=== PATIENT | female | born 1950 | race Caucasian/White ===

== ENCOUNTER 2017-05-23 16:01 | Observation (INO) | payer MEDICARE, BC ==
[~2017-05-23] VITALS: Ht 157.5 cm; Wt 60.1 kg
[~2017-05-23 16:01] MED LIST: ALBU8I INH; AMLO5 PO; ATOR10 PO; BECL80AE3 INH; CIPR500T4 PO; CLAR10TA7 PO; FLAG500T PO; FLON0.053; IBUP-232 PO; LEXA5TAB PO; MONT10TA2 PO; POTA-243 PO; PROM6.257 PO; PROT40TA PO; ZITH250T PO
[2017-05-23 16:13] VITALS: BP 155/84; PULSE 106; RESP 16; TEMP 98.4; O2SAT 95
[2017-05-23] MEDS ORDERED: OMEP40CA2 PO (17:53)
[2017-05-23] MEDS ORDERED: AMLO5TAB2 PO (17:53)
[2017-05-23] MEDS ORDERED: LEVO75TA3 PO (17:53)
[2017-05-23] MEDS ORDERED: LEXA10TA PO (17:53)
[2017-05-23] MEDS ORDERED: BECL0.07 INH (17:53)
[2017-05-23] MEDS ORDERED: FLUT50SP EACH NARE (17:53)
[2017-05-23] MEDS ORDERED: MONT10TA4 PO (17:53)
[2017-05-23] MEDS ORDERED: ALEN1TAB48 PO (17:53)
[2017-05-23] MEDS ORDERED: ATOR20TA15 PO (17:53)
[2017-05-23] MEDS ORDERED: K-TA10TA PO (17:53)
[2017-05-23] MEDS ORDERED: SODIUM CHLOR 0.9% 1000 ML INJ 1,000 ML IV SCH (18:03)
[2017-05-23 18:15] VITALS: BP 164/89; PULSE 105; PULSE 88; RESP 18; O2SAT 97
[2017-05-23] MEDS ORDERED: ONDANSETRON HCL 4 MG/2 ML VIAL IVP ONE (18:15)
[2017-05-23] MEDS ORDERED: SODIUM CHLORIDE 0.9% FLUSH 10 ML FLUSH IV FLUSH PRN ×2 (18:15→20:45)
[2017-05-23] MEDS ORDERED: MORPHINE SULFATE 4 MG/ML INJ IV PUSH ONE (18:15)
[2017-05-23 18:18] LABS: AUTOMATED NEUTROPHIL # 11.4 TH/MM3 (1.8-7.7); BASOPHIL # 0.4 TH/MM3 (0-0.2); BASOPHIL % 2.8 % (0.0-2.0); EOSINOPHIL % 0.2 % (0.0-4.0); HEMATOCRIT 42.9 % (35.0-46.0); HEMOGLOBIN 14.2 GM/DL (11.6-15.3); LYMPH % 11.1 % (9.0-44.0); LYMPHOCYTE # 1.6 TH/MM3 (1.0-4.8); MEAN CELL VOLUME 87.9 FL (80.0-100.0); MEAN CORPUSCULAR HEMOGLOBIN 29.1 PG (27.0-34.0); MEAN CORPUSCULAR HGB CONC 33.1 % (32.0-36.0); MEAN PLATELET VOLUME 7.2 FL (7.0-11.0); MONOCYTE # 0.7 TH/MM3 (0-0.9); NEUT % 80.9 % (16.0-70.0); PLATELET COUNT 281 TH/MM3 (150-450); RED BLOOD COUNT 4.88 MIL/MM3 (4.00-5.30); RED CELL DISTRIBUTION WIDTH 12.9 % (11.6-17.2); WHITE BLOOD COUNT 14.1 TH/MM3 (4.0-11.0)
[2017-05-23 18:28] LABS: CHLORIDE 102 MEQ/L (98-107); SODIUM (NA) 138 MEQ/L (136-145)
[2017-05-23 18:32] LABS: CALCIUM 8.6 MG/DL (8.5-10.1)
[2017-05-23 18:33] LABS: ALBUMIN 3.3 GM/DL (3.4-5.0); BICARBONATE 27.6 MEQ/L (21.0-32.0); BLOOD UREA NITROGEN 12 MG/DL (7-18); GLUCOSE,RANDOM 125 MG/DL (74-106)
[2017-05-23 18:36] LABS: ALT (GPT) 27 U/L (10-53); AST (GOT) 20 U/L (15-37); CREATININE 0.82 MG/DL (0.50-1.00); GLOMERULAR FILTRATION RATE 70 ML/MIN (>89)
[2017-05-23 18:37] LABS: PROTHROMBIN TIME - PATIENT 10.2 SEC (9.8-11.6); TOTAL BILIRUBIN ADULT 0.6 MG/DL (0.2-1.0); TOTAL PROTEIN 7.8 GM/DL (6.4-8.2)
[2017-05-23 18:38] LABS: ALKALINE PHOSPHATASE 94 U/L (45-117)
[2017-05-23] MEDS ORDERED: IOHEXOL 350 MG/ML 10 ML VIAL (for RAD DIAG) IVCONTRAST ONE (19:07)
--- NOTE | 2017-05-23 19:21 | RADRPT ---
EXAM DATE/TIME: 05/23/2017 18:49 [place] COMPARISON: Report only CT ABDOMEN & PELVIS W CONTRAST, November 05, 2013, 17:53. INDICATIONS : Right abdominal pain. IV CONTRAST: 85 cc Omnipaque 350 (iohexol) IV ORAL CONTRAST: No oral contrast ingested. RADIATION DOSE: 6.24 CTDIvol (mGy) MEDICAL HISTORY : Hernia, hiatal. Hypertension. Asthma. SURGICAL HISTORY : Tubal ligation. ENCOUNTER: Initial ACUITY: 1 day PAIN SCALE: 5/10 LOCATION: Right abdomen. TECHNIQUE: Volumetric scanning of the abdomen and pelvis was performed. Using automated exposure control and ad justment of the mA and/or kV according to patient size, radiation dose was kept as low as reasonably achievable to obtain optimal diagnostic quality images. DICOM format image data is available electro nically for review and comparison. FINDINGS: LOWER LUNGS: Mild patchy atelectasis of both bases. LIVER: 23 mm left lobe and 19 mm right lobe cysts are present, described previously. Liver is fatty. SPLEEN: Normal size without lesion. PANCREAS: Within normal limits. KIDNEYS: Normal in size and shape. There is no mass, stone or hydronephrosis. ADRENAL GLANDS: Within normal limits. VASCULAR: Atherosclerotic plaque of the abdominal aorta and iliac arteries. No aneurysm. BOWEL/MESENTERY: Distended and fluid-filled appendix with periappendiceal stranding and some thickening of the adjacen t base of the cecum. No abscess, perforation or obstruction. ABDOMINAL WALL: Within normal limits. RETROPERITONEUM: There is no lymphadenopathy. BLADDER: No wall thickening or mass. REPRODUCTIVE: Within normal limits. INGUINAL: There is no lymphadenopathy or hernia. MUSCULOSKELETAL: No acute bony abnormality. CONCLUSION: 1. Uncomplicated acute appendicitis. 2. Mild bibasilar atelectasis. 3. Benign cysts of the liver. Fatty infiltration noted. Mario Perry MD on May 23, 2017 at 19:15 Board Certified Radiologist. This report was verified electronically.
[2017-05-23 19:39] LABS: BILIRUBIN, URINE NEG (NEG); BLOOD, URINE NEG (NEG); GLUCOSE,URINE NEG (NEG); KETONE, URINE TRACE mg/dL (NEG); NITRITE,URINE NEG (NEG); PH, URINE 6.5 (5.0-8.5); URINE COLOR YELLOW (YELLW/STRAW); URINE LEUKOCYTE ESTERASE NEG (NEG)
[2017-05-23 19:58] LABS: SQUAMOUS EPITHELIAL CELL URINE 0-5 /hpf (0-5)
[2017-05-23 19:59] LABS: MUCUS URINE RARE /lpf (OCC); WHITE BLOOD CELL CLUMPS RARE
[2017-05-23] MEDS ORDERED: cefTRIAXone INJ 1,000 MG in SODIUM CHLORIDE 0.9% INJ 100 ML IV ONE (20:00)
[2017-05-23] MEDS ORDERED: metroNIDAZOLE 500 MG INJ 100 ML IV ONE (20:00)
[2017-05-23] MEDS ORDERED: SENNOSIDES 8.6 MG TAB PO PRN (20:45)
[2017-05-23] MEDS ORDERED: LACTULOSE SYRUP 20 GM/30 ML CUP PO PRN (20:45)
[2017-05-23] MEDS ORDERED: NALOXONE HCL 0.4 MG/ML AMP IV PUSH PRN (20:45)
[2017-05-23] MEDS ORDERED: BISACODYL 10 MG SUPP RECTAL PRN (20:45)
[2017-05-23] MEDS ORDERED: ONDANSETRON HCL 4 MG/2 ML VIAL IVP PRN (20:45)
[2017-05-23] MEDS ORDERED: MAGNESIUM HYDROXIDE SUSP 30 ML CUP PO PRN (20:45)
[2017-05-23] MEDS ORDERED: MORPHINE SULFATE 2 MG/ML INJ IV PUSH PRN (20:45)
[2017-05-23 20:49] VITALS: BP 119/99; PULSE 102; RESP 18; O2SAT 97
--- NOTE | 2017-05-23 20:49 | PD ---
HPI Chief Complaint: Abdominal Pain Time Seen by Provider: 17:57 Travel History International Travel<30 days: No Contact w/Intl Traveler<30days: No Traveled to known affect area: No History of Present Illness HPI Patient is a 66-year-old female who comes in complaining of right-sided abdominal pain. She says the pain started on Saturday and has been getting worse. She says she had occasional nausea vomiting, but today has vomited several times. She denies fever or chills. She says she is moving her bowels regularly. She denies any dysuria. She has not taken anything for the pain. Severity is mild to moderate. PFSH Past Medical History Arthritis: Yes Asthma: Yes (WITH CHRONIC BRONCHITIS) Cardiovascular Problems: Yes (htn on meds) High Cholesterol: Yes Diminished Hearing: No GERD: Yes Hiatal Hernia: Yes Hypertension: Yes Inguinal Hernia: Yes Respiratory: Yes (asthma) Immunizations Current: Yes (shingles vac 2012) Thyroid Disease: Yes Influenza Vaccination: Yes ?: Not Menopausal: Yes Tubal Ligation: Yes Past Surgical History Other Surgery: Yes (r bunionectomy) Social History Alcohol Use: No Tobacco Use: No Substance Use: No Allergies-Medications (Allergen,Severity, Reaction): Coded Allergies: penicillin G (Unverified Adverse Reaction, Intermediate, RASH, 05/23/17) Reported Meds & Prescriptions Reported Meds & Active Scripts Active Reported Fluticasone Nasal [place] 50 Mcg/Act Naspr 50 Mcg EACH NARE BID 50 mcg/spray Qvar Inh (Beclomethasone Dipropionate) 40 Mcg/Act Aero 1 Puff INH BID Amlodipine (Amlodipine Besylate) 5 Mg Tab 5 Mg PO DAILY Atorvastatin (Atorvastatin Calcium) 20 Mg Tab 20 Mg PO HS Montelukast (Montelukast Sodium) 10 Mg Tab 10 Mg PO HS Lexapro (Escitalopram Oxalate) 10 Mg Tab 10 Mg PO DAILY K-Tab (Potassium Chloride) 10 Meq Tab 10 Meq PO DAILY Omeprazole 40 Mg Cap 40 Mg PO DAILY Levothyroxine (Levothyroxine Sodium) 75 Mcg Tab 75 Mcg PO DAILY Alendronate (Alendronate Sodium) 70 Mg Tab 70 Mg PO Q7D Review of Systems Except as stated in HPI: all other systems reviewed are Neg General / Constitutional: No: Fever, Chills HENT: No: Headaches, Lightheadedness Cardiovascular: No: Chest Pain or Discomfort Respiratory: No: Shortness of Breath Gastrointestinal: Positive: Nausea, Vomiting, Abdominal Pain Genitourinary: No: Dysuria Musculoskeletal: No: Myalgias Skin: No Rash, No Change in Pigmentation Neurologic: No: Weakness Physical Exam Narrative GENERAL: Awake and alert, in no acute distress. SKIN: Focused skin assessment warm/dry. HEAD: Atraumatic. Normocephalic. EYES: Pupils equal and round. No scleral icterus. ENT: Mucous membranes pink and moist. NECK: Trachea midline. No JVD. CARDIOVASCULAR: Regular rate and rhythm. No murmur appreciated. RESPIRATORY: No accessory muscle use. Clear to auscultation. Breath sounds equal bilaterally. GASTROINTESTINAL: Abdomen soft, nondistended. Tenderness to palpation of the right side of the abdomen. No rebound or guarding. MUSCULOSKELETAL: No obvious deformities. No clubbing. No cyanosis. No edema. NEUROLOGICAL: Awake and alert. No obvious cranial nerve deficits. Motor grossly within normal limits. Normal speech. PSYCHIATRIC: Appropriate mood and affect; insight and judgment normal. Data Data Last Documented VS Vital Signs Date Time Temp Pulse Resp B/P (MAP) Pulse Ox O2 Delivery O2 Flow Rate FiO2 05/23/17 18:31 18 05/23/17 18:15 88 164/89 (114) 97 Room Air 05/23/17 16:13 98.4 Orders Orders Complete Blood Count With Diff (05/23/17 18:03) Comprehensive Metabolic Panel (05/23/17 18:03) Lipase (05/23/17 18:03) Prothrombin Time / Inr (Pt) (05/23/17 18:) Act Partial Throm Time (Ptt) (05/23/17 18:03) Urinalysis - C+S If Indicated (05/23/17 18:03) Ct Abd/Pel W Iv Contrast(Rout) (05/23/17 18:03) Iv Access Insert/Monitor (05/23/17 18:) Ecg Monitoring (05/23/17 18:) Oximetry (05/23/17 18:03) Morphine Inj (Morphine Inj) (05/23/17 18:15) Ondansetron Inj (Zofran Inj) (05/23/17 18:15) Sodium Chlor 0.9% 1000 Ml Inj (Ns 1000 M (05/23/17 18:03) Sodium Chloride 0.9% Flush (Ns Flush) (05/23/17 18:15) Iohexol 350 Inj (Omnipaque 350 Inj) (05/23/17 19:07) Ceftriaxone Inj (Rocephin Inj) (05/23/17 20:00) Metronidazole 500 Mg Inj (Flagyl 500 Mg (05/23/17 20:00) Urine Culture (05/23/17 19:26) Consent (05/23/17 20:23) Place In Observation (05/23/17 ) Vital Signs (Adult) Q4H (05/23/17 20:40) Diet Npo (05/24/17 Breakfast) Sodium Chlor 0.9% 1000 Ml Inj (Ns 1000 M (05/23/17 20:40) Sodium Chloride 0.9% Flush (Ns Flush) (05/23/17 20:45) Sodium Chloride 0.9% Flush (Ns Flush) (05/23/17 21:00) Ondansetron Inj (Zofran Inj) (05/23/17 20:45) Comprehensive Metabolic Panel (05/24/17 06:00) Complete Blood Count With Diff (05/24/17 06:00) Naloxone Inj (Narcan Inj) (05/23/17 20:45) Docusate Sodium-Senna (Sakina-Colace) (05/23/17 21:00) Magnesium Hydroxide Liq (Milk Of Magnesi (05/23/17 20:45) Sennosides (Senokot) (05/23/17 20:45) Bisacodyl Supp (Dulcolax Supp) (05/23/17 20:45) Lactulose Liq (Lactulose Liq) (05/23/17 20:45) Morphine Inj (Morphine Inj) (05/23/17 20:45) Ceftriaxone Inj (Rocephin Inj) (05/24/17 20:00) Admit Order (Ed Use Only) (05/23/17 ) Labs Laboratory Tests Test 05/23/17 18:00 05/23/17 19:26 White Blood Count 14.1 TH/MM3 Red Blood Count 4.88 MIL/MM3 Hemoglobin 14.2 GM/DL Hematocrit 42.9 % Mean Corpuscular Volume 87.9 FL Mean Corpuscular Hemoglobin 29.1 PG Mean Corpuscular Hemoglobin Concent 33.1 % Red Cell Distribution Width 12.9 % Platelet Count 281 TH/MM3 Mean Platelet Volume 7.2 FL Neutrophils (%) (Auto) 80.9 % Lymphocytes (%) (Auto) 11.1 % Monocytes (%) (Auto) 5.0 % Eosinophils (%) (Auto) 0.2 % Basophils (%) (Auto) 2.8 % Neutrophils # (Auto) 11.4 TH/MM3 Lymphocytes # (Auto) 1.6 TH/MM3 Monocytes # (Auto) 0.7 TH/MM3 Eosinophils # (Auto) 0.0 TH/MM3 Basophils # (Auto) 0.4 TH/MM3 CBC Comment DIFF FINAL Differential Comment Prothrombin Time 10.2 SEC Prothromb Time International Ratio 1.0 RATIO Activated Partial Thromboplast Time 24.0 SEC Blood Urea Nitrogen 12 MG/DL Creatinine 0.82 MG/DL Random Glucose 125 MG/DL Total Protein 7.8 GM/DL Albumin 3.3 GM/DL Calcium Level 8.6 MG/DL Alkaline Phosphatase 94 U/L Aspartate Amino Transf (AST/SGOT) 20 U/L Alanine Aminotransferase (ALT/SGPT) 27 U/L Total Bilirubin 0.6 MG/DL Sodium Level 138 MEQ/L Potassium Level 3.6 MEQ/L Chloride Level 102 MEQ/L Carbon Dioxide Level 27.6 MEQ/L Anion Gap 8 MEQ/L Estimat Glomerular Filtration Rate 70 ML/MIN Lipase 179 U/L Urine Color YELLOW Urine Turbidity CLEAR Urine pH 6.5 Urine Specific [place] LESS/EQUAL 1.005 Urine Protein NEG mg/dL Urine Glucose (UA) NEG mg/dL Urine Ketones TRACE mg/dL Urine Occult Blood NEG Urine Nitrite NEG Urine Bilirubin NEG Urine Urobilinogen 0.2 MG/DL Urine Leukocyte Esterase NEG Urine RBC 4-9 /hpf Urine WBC 3-5 /hpf Urine WBC Clumps RARE Urine Squamous Epithelial Cells 0-5 /hpf Urine Mucus RARE /lpf Urine Yeast (Budding) FEW Microscopic Urinalysis Comment CULTURE INDICATED MDM Medical Decision Making Medical Screen Exam Complete: Yes Emergency Medical Condition: Yes Medical Record Reviewed: Yes Differential Diagnosis Appendicitis vs colitis vs gastroenteritis vs cholecystitis vs pancreatitis Narrative Course Patient is a 66-year-old female who comes in complaining of right-sided abdominal pain with nausea and vomiting. Exam shows tenderness to palpation of the right side. IV established, labs sent. Labs show elevated white blood cell count. CT abdomen and pelvis performed shows acute appendicitis. Patient was given antibiotics. Given IV fluids, Zofran, pain medicine. I spoke with Dr. George who says he will take the patient to the OR either tonight or tomorrow morning. Patient admitted to medicine for further management. Last 24 hours Impressions Abdomen/Pelvis CT 05/23/17 1803 Signed Impressions: Service Date/Time: May 18:49 - CONCLUSION: 1. Uncomplicated acute appendicitis. 2. Mild bibasilar atelectasis. 3. Benign cysts of the liver. Fatty infiltration noted. Mario Perry MD Diagnosis Primary Impression: Appendicitis Qualified Codes: K35.3 - Acute appendicitis with localized peritonitis Admitting Information Admitting Physician Requests: Admit Jaycee Sanders MD May 23, 2017 20:49
[2017-05-23] MEDS: DOCUSATE SODIUM 50 MG/SENNA 8.6 MG TAB PO SCH (21:00)
[2017-05-23 21:26] VITALS: BP 152/74; TEMP 98.3
[2017-05-23 21:52] VITALS: BP 177/84; PULSE 82; RESP 20; TEMP 97.1; O2SAT 96
[2017-05-23] MEDS: SODIUM CHLORIDE 0.9% FLUSH 10 ML FLUSH IV FLUSH SCH (22:32)
[2017-05-23] MEDS: SODIUM CHLOR 0.9% 1000 ML INJ 1,000 ML IV SCH (22:32)
[2017-05-23] MEDS ORDERED: PROMETHAZINE INJ 25 MG/ML VIAL IM ONE (23:00)
[2017-05-24] VITALS: BP 134/78; PULSE 104; RESP 20; TEMP 97.2; O2SAT 98
[2017-05-24] MEDS ORDERED: POVIDONE IODINE 5% (ANTISEPSIS KIT) 4 APPLICATIONS EACH NARE PRN (00:45)
[2017-05-24] MEDS ORDERED: SODIUM CHLORID 0.9% 500 ML IV PRN (00:45)
[2017-05-24] MEDS ORDERED: LACTATED RINGER'S 1000 ML IV PRN (00:45)
[2017-05-24] MEDS ORDERED: METOPROLOL TARTRATE 25 MG TAB PO PRN (00:45)
[2017-05-24] MEDS ORDERED: CHLORHEXIDINE GLUCONATE 2 % 1 PACK (2 CLOTHS) TOPICAL PRN (00:45)
[2017-05-24 06:46] LABS: AUTOMATED NEUTROPHIL # 15.5 TH/MM3 (1.8-7.7); BASOPHIL % 0.2 % (0.0-2.0); EOSINOPHIL % 0.1 % (0.0-4.0); HEMATOCRIT 42.9 % (35.0-46.0); HEMOGLOBIN 14.2 GM/DL (11.6-15.3); LYMPHOCYTE # 0.7 TH/MM3 (1.0-4.8); MEAN CELL VOLUME 88.6 FL (80.0-100.0); MEAN CORPUSCULAR HEMOGLOBIN 29.2 PG (27.0-34.0); MEAN PLATELET VOLUME 7.8 FL (7.0-11.0); MONO % 4.6 % (0.0-8.0); MONOCYTE # 0.8 TH/MM3 (0-0.9); NEUT % 91.1 % (16.0-70.0); PLATELET COUNT 262 TH/MM3 (150-450); RED BLOOD COUNT 4.85 MIL/MM3 (4.00-5.30); RED CELL DISTRIBUTION WIDTH 12.9 % (11.6-17.2)
[2017-05-24] MEDS ORDERED: BUPIVACAINE/EPINEPHRINE 0.25% 50 ML VIAL ONE (06:58)
[2017-05-24] MEDS ORDERED: SODIUM CHLORIDE 0.9% INJ 50 ML ONE (07:04)
--- NOTE | 2017-05-24 07:16 | HHI.PR ---
Immediate Post Op Note Procedure Date: May 24, 2017 Pre Op Diagnosis: acute appendicitis Post Op Diagnosis: same Surgeon: Connor George MD [employer] Crm Developer(s): none Procedure: lap appy Findings: inflamed appendix Complications: none Specimen(s) removed: appendix Estimated blood loss: 5cc Anesthesia: General IVF Patient to: PACU Patient Condition: Good Connor George MD May 24, 2017 07:16
[2017-05-24 07:29] LABS: CHLORIDE 105 MEQ/L (98-107); SODIUM (NA) 139 MEQ/L (136-145)
[2017-05-24] MEDS ORDERED: MORPHINE SULFATE 2 MG/ML INJ IM PRN (07:30)
[2017-05-24 07:33] LABS: CALCIUM 7.8 MG/DL (8.5-10.1)
[2017-05-24 07:34] LABS: ALBUMIN 3.4 GM/DL (3.4-5.0); BICARBONATE 25.1 MEQ/L (21.0-32.0); BLOOD UREA NITROGEN 7 MG/DL (7-18); GLUCOSE,RANDOM 189 MG/DL (74-106)
[2017-05-24 07:37] LABS: ALT (GPT) 26 U/L (10-53); AST (GOT) 16 U/L (15-37); GLOMERULAR FILTRATION RATE 83 ML/MIN (>89)
[2017-05-24 07:39] LABS: TOTAL BILIRUBIN ADULT 0.4 MG/DL (0.2-1.0); TOTAL PROTEIN 7.8 GM/DL (6.4-8.2)
[2017-05-24 07:40] LABS: ALKALINE PHOSPHATASE 94 U/L (45-117)
--- NOTE | 2017-05-24 07:59 | MB ---
cc: Connor George MD DATE OF CONSULT: REASON FOR CONSULTATION: Abdominal pain, acute appendicitis. HISTORY OF PRESENT ILLNESS: The patient is a 66-year-old female who presents with acute onset of right lower quadrant abdominal pain. She states the pain started Saturday and continued to get worse. She had occasional nausea and vomiting. She denied any significant fevers. She states the pain was initially a 10/10, currently it is 8/10, migrated from the umbilicus to right lower quadrant, worse with movement, better with lying still, improvement with some pain medication, however, still severe. She denies any dysuria or change in bowel habits. She came to the emergency department for further evaluation including CT scan showing acute appendicitis, along with WBC elevation. PAST MEDICAL HISTORY: Arthritis, reflux, hypercholesteremia, hiatal hernia, hypertension, shingles, thyroiditis. PAST SURGICAL HISTORY: Bunionectomy, tubal ligation. SOCIAL HISTORY: Denies smoking, ETOH, or IVDA. ALLERGIES: PENICILLIN. MEDICATIONS: See EMR. FAMILY HISTORY: Brother and father with diabetes. Mother healthy. REVIEW OF SYSTEMS: GENERAL: Denies fever or chills. HEENT: Denies eye pain, ear pain. NECK: Denies swelling or pain. LUNGS: Denies cough or wheeze. HEART: Denies palpitations or chest pain. ABDOMEN: Complains of nausea, vomiting, abdominal pain. GENITOURINARY: Denies dysuria, hematuria. ENDOCRINE: Denies polyuria, polydipsia. INTEGUMENT: Denies any rashes or pigmentation. NEUROLOGIC: Denies numbness or weakness. PSYCHIATRIC: Denies change in mood or sensorium. PHYSICAL EXAMINATION: GENERAL: No acute distress. VITAL SIGNS: Temperature 98.4, pulse 88, respirations 18, blood pressure 164/89, saturation 97%. HEENT: Pupils equal, round, reactive. Normocephalic, atraumatic. NECK: Supple. Trachea midline. LUNGS: Clear to auscultation, bilateral expansion. HEART: S1, S2. Regular rate and rhythm. ABDOMEN: Soft, positive to palpation in the right lower quadrant. Minimal rebound in right lower quadrant. No peritoneal signs. GENITOURINARY: Within normal limits. NEUROLOGIC: 5/5 motor all extremities. GCS 15. PSYCHIATRIC: Appropriate mood, appropriate affect. LABORATORY AND DIAGNOSTIC DATA: WBC 14.1, hemoglobin 14.2, hematocrit 42.9, platelets 281. Sodium 138, potassium 3.6, chloride 102, BUN 12, creatinine 0.8, glucose 125, AST 20, ALT 27, albumin 3.1, lipase 176. CT reviewed by myself showing acute appendicitis with stranding and induration, a relatively large appendix. ASSESSMENT: The patient is a 66-year-old female with acute appendicitis. PLAN: After full clinical, radiologic and laboratory workup, patient with the above main issues including acute appendicitis. At this time, discussed with the patient in detail needing operative intervention including laparoscopic appendectomy. The patient is on IV antibiotics. Agree with this. N.p.o. Pain control. Will continue to follow and again take the patient to the operating room for laparoscopic appendectomy. MD DOROTHY Baker/JOSE R , 07:22 AM , 07:57 AM
[2017-05-24] MEDS ORDERED: SUGAMMADEX SODIUM 200 MG/2 ML VIAL IV PUSH ONE (08:01)
[2017-05-24] MEDS ORDERED: RESP: ALBUTEROL CONC 2.5 MG/0.5 ML NEB ONE (08:35)
[2017-05-24] MEDS: DOCUSATE SODIUM 50 MG/SENNA 8.6 MG TAB PO SCH (09:38)
[2017-05-24] MEDS: SODIUM CHLOR 0.9% 1000 ML INJ 1,000 ML IV SCH (09:39)
[2017-05-24] MEDS: SODIUM CHLORIDE 0.9% FLUSH 10 ML FLUSH IV FLUSH SCH (09:39)
--- NOTE | 2017-05-24 10:59 | HHI.HP ---
[facility] Joe Granados MD Admission Diagnosis acute appendicitis Diagnoses: (1) Appendicitis (2) Abdominal pain Chief Complaint: Right lower quadrant pain Travel History International Travel<30 Days: No Contact w/Intl Traveler <30 Da: No Traveled to Known Affected Are: No History of Present Illness 66-year-old female with a history of hypertension, hyperlipidemia, presented to the ED for evaluation of worsening symptoms of right lower quadrant 5 days duration associated with intractable nausea and vomiting prior to admission to the ED. CT abdomen order reveal acute appendicitis for which Gen. surgery was consulted, and patient underwent lap appendectomy current this morning. She was seen postoperatively and patient was able to tolerate by mouth without any complaint or nausea and vomiting. Reports improvement of abdominal pain. Vitals stable however WBC still elevated despite negative UA. Patient is requested to be discharged home. Review of Systems Except as stated in HPI: all other systems reviewed are Neg Past Family Social History Past Medical History Arthritis: Yes Asthma: Yes (WITH CHRONIC BRONCHITIS) Cardiovascular Problems: Yes (htn on meds) High Cholesterol: Yes GERD: Yes Hiatal Hernia: Yes Hypertension: Yes Inguinal Hernia: Yes Respiratory: Yes (asthma) Immunizations Current: Yes (shingles vac 2012) Thyroid Disease: Yes Past Surgical History r bunionectomy Reported Medications Fluticasone Nasal [place] 50 Mcg/Act Naspr 50 Mcg EACH NARE BID 50 mcg/spray Qvar Inh (Beclomethasone Dipropionate) 40 Mcg/Act Aero 1 Puff INH BID Amlodipine (Amlodipine Besylate) 5 Mg Tab 5 Mg PO DAILY Atorvastatin (Atorvastatin Calcium) 20 Mg Tab 20 Mg PO HS Montelukast (Montelukast Sodium) 10 Mg Tab 10 Mg PO HS Lexapro (Escitalopram Oxalate) 10 Mg Tab 10 Mg PO DAILY K-Tab (Potassium Chloride) 10 Meq Tab 10 Meq PO DAILY Omeprazole 40 Mg Cap 40 Mg PO DAILY Levothyroxine (Levothyroxine Sodium) 75 Mcg Tab 75 Mcg PO DAILY Alendronate (Alendronate Sodium) 70 Mg Tab 70 Mg PO Q7D Allergies: Coded Allergies: penicillin G (Unverified Adverse Reaction, Intermediate, RASH, 3/16/18) Family History Positive for asthma Social History Alcohol Use: No Tobacco Use: No Substance Use: No Physical Exam Vital Signs Vital Signs Date Time Temp Pulse Resp B/P (MAP) Pulse Ox O2 Delivery O2 Flow Rate FiO2 05/24/17 09:20 97.3 89 20 123/74 (90) 98 Room Air 05/24/17 09:05 92 20 133/64 (87) 97 Room Air 05/24/17 08:50 90 20 128/80 (96) 100 Nasal Cannula 2 05/24/17 08:35 87 20 136/69 (91) 99 Nasal Cannula 2 05/24/17 08:21 97.5 87 18 118/63 (81) 95 Nasal Cannula 2 05/24/17 06:40 98.0 109 18 164/95 (118) 95 05/24/17 00:00 97.2 104 20 134/78 (96) 98 05/23/17 21:52 97.1 82 20 177/84 (115) 96 05/23/17 21:26 98.3 88 16 152/74 (100) 98 05/23/17 20:49 102 18 119/99 (106) 97 05/23/17 18:31 18 05/23/17 18:15 88 18 164/89 (114) 97 Room Air 05/23/17 16:13 98.4 106 16 155/84 (107) 95 Physical Exam GENERAL: This is a well-nourished, well-developed patient, in no apparent distress. SKIN: No rashes, ecchymoses or lesions. Cool and dry. HEAD: Atraumatic. Normocephalic. No temporal or scalp tenderness. EYES: Pupils equal round and reactive. Extraocular motions intact. No scleral icterus. No injection or drainage. ENT: Nose without bleeding, purulent drainage or septal hematoma. Throat without erythema, tonsillar hypertrophy or exudate. Uvula midline. Airway patent. NECK: Trachea midline. No JVD or lymphadenopathy. Supple, nontender, no meningeal signs. CARDIOVASCULAR: Regular rate and rhythm without murmurs, gallops, or rubs. RESPIRATORY: Clear to auscultation. Breath sounds equal bilaterally. No wheezes , rales, or rhonchi. GASTROINTESTINAL: Abdomen soft, mildly tender @ incision site, nondistended. No hepato-splenomegaly, or palpable masses. No guarding. inc d/c/i MUSCULOSKELETAL: Extremities without clubbing, cyanosis, or edema. No joint tenderness, effusion, or edema noted. No calf tenderness. Negative Homans sign bilaterally. NEUROLOGICAL: Awake and alert. Cranial nerves II through XII intact. Motor and sensory grossly within normal limits. Five out of 5 muscle strength in all muscle groups. Normal speech. Laboratory Laboratory Tests Test 05/23/17 18:00 05/23/17 19:26 05/24/17 06:25 White Blood Count 14.1 17.0 Red Blood Count 4.88 4.85 Hemoglobin 14.2 14.2 Hematocrit 42.9 42.9 Mean Corpuscular Volume 87.9 88.6 Mean Corpuscular Hemoglobin 29.1 29.2 Mean Corpuscular Hemoglobin Concent 33.1 33.0 Red Cell Distribution Width 12.9 12.9 Platelet Count 281 262 Mean Platelet Volume 7.2 7.8 Neutrophils (%) (Auto) 80.9 91.1 Lymphocytes (%) (Auto) 11.1 4.0 Monocytes (%) (Auto) 5.0 4.6 Eosinophils (%) (Auto) 0.2 0.1 Basophils (%) (Auto) 2.8 0.2 Neutrophils # (Auto) 11.4 15.5 Lymphocytes # (Auto) 1.6 0.7 Monocytes # (Auto) 0.7 0.8 Eosinophils # (Auto) 0.0 0.0 Basophils # (Auto) 0.4 0.0 CBC Comment DIFF FINAL DIFF FINAL Differential Comment Prothrombin Time 10.2 Prothromb Time International Ratio 1.0 Activated Partial Thromboplast Time 24.0 Blood Urea Nitrogen 12 7 Creatinine 0.82 0.70 Random Glucose 125 189 Total Protein 7.8 7.8 Albumin 3.3 3.4 Calcium Level 8.6 7.8 Alkaline Phosphatase 94 94 Aspartate Amino Transf (AST/SGOT) 20 16 Alanine Aminotransferase (ALT/SGPT) 27 26 Total Bilirubin 0.6 0.4 Sodium Level 138 139 Potassium Level 3.6 3.1 Chloride Level 102 105 Carbon Dioxide Level 27.6 25.1 Anion Gap 8 9 Estimat Glomerular Filtration Rate 70 83 Lipase 179 Urine Color YELLOW Urine Turbidity CLEAR Urine pH 6.5 Urine Specific [place] LESS/EQUAL 1.005 Urine Protein NEG Urine Glucose (UA) NEG Urine Ketones TRACE Urine Occult Blood NEG Urine Nitrite NEG Urine Bilirubin NEG Urine Urobilinogen 0.2 Urine Leukocyte Esterase NEG Urine RBC 4-9 Urine WBC 3-5 Urine WBC Clumps RARE Urine Squamous Epithelial Cells 0-5 Urine Mucus RARE Urine Yeast (Budding) FEW Microscopic Urinalysis Comment CULTURE INDICATED Date/Time Source Procedure Growth Status 05/23/17 19:26 Urine Clean Catch Urine Culture Pending Received Result Diagram: 05/24/1725 05/24/17 0625 Imaging Last Impressions Abdomen/Pelvis CT 05/23/17 180 Signed Impressions: Service Date/Time: May 18:49 - CONCLUSION: 1. Uncomplicated acute appendicitis. 2. Mild bibasilar atelectasis. 3. Benign cysts of the liver. Fatty infiltration noted. Mario Perry MD Septic Shock Reassessment Septic shock perfusion: reassessment completed Caprini VTE Risk Assessment Caprini VTE Risk Assessment: Mod/High Risk (score >= 2) Caprini Risk Assessment Model Point Value = 1 Point Value = 2 Point Value = 3 Point Value = 5 Age 41-60 Minor surgery BMI > 25 kg/m2 Swollen legs Varicose veins or History of unexplained or recurrent spontaneous Oral contraceptives or hormone replacement Sepsis (< 1 month) Serious lung disease, including pneumonia (< 1 month) Abnormal pulmonary function Acute myocardial infarction Congestive heart failure (< 1 month) History of inflammatory bowel disease Medical patient at bed rest Age 61-74 Arthroscopic surgery Major open surgery (> 45 min) Laparoscopic surgery (> 45 min) Malignancy Confined to bed (> 72 hours) Immobilizing plaster cast Central venous access Age >= 75 History of VTE Family history of VTE Factor V Leiden Prothrombin [id number] Lupus anticoagulant Anticardiolipin antibodies Elevated serum homocysteine Heparin-induced thrombocytopenia Other congenital or acquired thrombophilia Stroke (< 1 month) Elective arthroplasty Hip, pelvis, or leg fracture Acute spinal cord injury (< 1 month) Prophylaxis Regimen Total Risk Factor Score Risk Level Prophylaxis Regimen 0-1 Low Early ambulation 2 Moderate Order ONE of the following: *Sequential Compression Device (SCD) *Heparin 5000 units SQ BID 3-4 Higher Order ONE of the following medications: *Heparin 5000 units SQ TID *Enoxaparin/Lovenox 40 mg SQ daily (WT < 150 kg, CrCl > 30 mL/min) *Enoxaparin/Lovenox 30 mg SQ daily (WT < 150 kg, CrCl > 10-29 mL/min) *Enoxaparin/Lovenox 30 mg SQ BID (WT < 150 kg, CrCl > 30 mL/min) AND/OR *Sequential Compression Device (SCD) 5 or more Highest Order ONE of the following medications: *Heparin 5000 units SQ TID (Preferred with Epidurals) *Enoxaparin/Lovenox 40 mg SQ daily (WT < 150 kg, CrCl > 30 mL/min) *Enoxaparin/Lovenox 30 mg SQ daily (WT < 150 kg, CrCl > 10-29 mL/min) *Enoxaparin/Lovenox 30 mg SQ BID (WT < 150 kg, CrCl > 30 mL/min) AND *Sequential Compression Device (SCD) Assessment and Plan Problem List: (1) Appendicitis ICD Code: K37 - Unspecified appendicitis Status: Acute (2) Abdominal pain ICD Code: R10.9 - Abdominal pain Status: Acute Assessment and Plan 66 years old female with Acute appendicitis Acute abdominal pain CT abdomen/pelvis noted and review with finding of acute appendicitis general surgery was consulted and patient underwent lap Appendectomy Parenteral pain management Leukocytosis Likely stress reactive vs secondary to acute appendicitis UA negative Continue with empiric Rocephin IV pending culture report Other chronic medical conditions including Hypertension/Hypothyroidism and others Stable and resume outpatient medications DVT prophylaxis: B-SCDs Code Status Full code Physician Certification 2 Midnight Certification Type: Admission for Inpatient Services Order for Inpatient Services The services are ordered in accordance with Medicare regulations or non- Medicare payer requirements, as applicable. In the case of services not specified as inpatient-only, they are appropriately provided as inpatient services in accordance with the 2-midnight benchmark. Estimated LOS (days): 2 days is the estimated time the patient will need to remain in the hospital, assuming treatment plan goals are met and no additional complications. Post-Hospital Plan: Not yet determined Problem Qualifiers (1) Appendicitis: Qualified Codes: K35.3 - Acute appendicitis with localized peritonitis Martin Mann MD May 24, 2017 10:59
--- NOTE | 2017-05-24 11:12 | MP ---
cc: Connor George MD DATE OF OPERATION: 05/24/2017 PREOPERATIVE DIAGNOSIS: Acute appendicitis. POSTOPERATIVE DIAGNOSIS: Acute appendicitis. PROCEDURE PERFORMED: Laparoscopic appendectomy. SURGEON: Connor George MD SOLE SCRAPER: None. PROCEDURE PERFORMED: Laparoscopic appendectomy. ANESTHESIA: GETA. INTRAVENOUS FLUIDS: See anesthesia sheet. ESTIMATED BLOOD LOSS: 5 mL. DRAINS: None. COMPLICATIONS: None. WOUND CLASSIFICATION: Contaminated. FINDINGS: Nonperforated necrotic appendicitis. SPECIMENS: Appendix. INDICATIONS: The patient is a 66-year-old female who presents with acute onset of abdominal pain. She states the pain started on Saturday and continued to get worse over the week. She denied any fevers, but did have some nausea and came to the emergency department for further evaluation including CT scan showing acute appendicitis with a very dilated enlarged appendix. The patient also with a leukocytosis. DETAILS OF PROCEDURE: The patient was in the operating suite, placed in supine position. She was prepped and draped in the usual sterile fashion after induction of general endotracheal anesthesia. Brief time-out done stating correct patient, procedure and surgical site. We were all in agreement with this. Attention directed to the umbilicus where local anesthetic injected. Stab christian incision made with a 15 blade. The Visiport Optiview 5 mm scope was used to enter the abdomen safely. Abdomen insufflated to 15 mm pneumoperitoneum. On cursory inspection, no evidence of injury. Two other ports were placed, one suprapubic, 5 mm x 12 mm left lower quadrant. The patient was placed in Trendelenburg airplaned to the left The right lower quadrant was explored and the appendix was identified. Appendix noted to be retrocecal and acutely inflamed with some necrosis. There is no evidence of overt perforation. There was minimal fluid in the abdomen. Suctioned irrigation and graspers were used to mobilize the appendix. A window was created in the base of the mesoappendix facilitating Endo ADONAY stapler placement. The Endo ADONAY stapler was used to transect the base of the appendix. Next, the mesoappendix was transected with Endo ADONAY stapler. The appendix was placed in the Endo Catch bag and removed from the abdomen through the left lower quadrant port. Minimal bleeding at the staple line with hemostasis with electro Bovie cautery. A small piece of Surgicel also placed. The ports were removed, pneumoperitoneum was removed. The left lower quadrant port was closed with 0 Vicryl to the fascia, 4-0 Monocryl to the subcuticular sutures. Sterile dressing was placed. The patient tolerated the procedure well. There were no intraoperative complication. All lap and instrument counts were correct at the end of the procedure. The patient was extubated and taken in stable condition to the PACU. MD DOROTHY Baker/EDDI , 10:43 AM , 11:11 AM
[2017-05-24] MEDS ORDERED: PERI PO (11:17)
[2017-05-24] MEDS ORDERED: HYDR-3288 PO (11:17)
[2017-05-24 12:00] VITALS: BP 123/67; PULSE 92; RESP 16; TEMP 97; O2SAT 97
[2017-05-24] MEDS ORDERED: PANTOPRAZOLE SOD 40 MG DELAYED RELEASE TAB PO SCH (12:00)
[2017-05-24] MEDS ORDERED: METR-1 PO (13:51)
[2017-05-24] MEDS ORDERED: LACTCHW3 CHEW (13:51)
[2017-05-24] MEDS ORDERED: CIPR-9 PO (13:51)
--- NOTE | 2017-05-24 13:53 | HHI.PR ---
Addendum to Inpatient Note Addendum Reason: Additional Documentation Additional Information Discharge patient to home Condition on discharge: Improved Regular Diet as tolerated Ad Donna activity Rx written:see EMR Follow-up with primary care physician in 1 week general Surgery in 1 week Martin Mann MD May 24, 2017 13:53
--- NOTE | 2017-05-24 14:15 | EKG ---
Date Performed: 05/24/2017 Time Performed: 06:19:08 PTAGE: 66 years EKG: SINUS TACHYCARDIA PATTERN CONSISTENT WITH PULMONARY DISEASE INCOMPLETE RIGHT BUNDLE BRANCH BLOCK LEFT ANTERIOR FASCICULAR BLOCK MINIMAL ST DEPRESSION ABNORMAL ECG PREVIOUS TRACING : 11/06/2013 08.26 Rate has increased since prior tracing, with ST-T changes s uggesting ischemia. Clinical correlation is recommended. DOCTOR: Js Prasad Interpretating Date/Time 05/24/2017 14:14:15
[2017-05-24] MEDS ORDERED: cefTRIAXone INJ 1,000 MG in SODIUM CHLORIDE 0.9% INJ 100 ML IV SCH (20:00)
[2017-05-24] MEDS ORDERED: ATORVASTATIN 20 MG TAB PO SCH (21:00)
[2017-05-24] MEDS ORDERED: MONTELUKAST SODIUM 10 MG TAB PO SCH (21:00)
[2017-05-25] MEDS ORDERED: LEVOTHYROXINE SODIUM 75 MCG TAB PO SCH (06:00)
[2017-05-25] MEDS ORDERED: amLODIPine BESYLATE 5 MG TAB PO SCH (09:00)
[2017-05-25] MEDS ORDERED: ESCITALOPRAM OXALATE 10 MG TAB PO SCH (09:00)
== END 2017-05-24 15:18 | disposition home or self-care (01) ==
LOC: PHED 16:01 → PHEDA 20:45 → PH3A 21:28
PROVIDERS: ADMIT Hospitalist; ATTEND Hospitalist
DX: K35.80 Unspecified acute appendicitis (principal); I10 Essential (primary) hypertension; I45.2 Bifascicular block; R00.0 Tachycardia, unspecified; R94.31 Abnormal electrocardiogram [ECG] [EKG]; E78.00 Pure hypercholesterolemia, unspecified; E03.9 Hypothyroidism, unspecified; J45.909 Unspecified asthma, uncomplicated; K76.89 Other specified diseases of liver; K76.0 Fatty (change of) liver, not elsewhere classified; K21.9 Gastro-esophageal reflux disease without esophagitis; J98.11 Atelectasis; M19.90 Unspecified osteoarthritis, unspecified site; Z79.899 Other long term (current) drug therapy
CPT/HCPCS: 00840; 44970; 74177; 80053; 81001; 83690; 85025; 85610; 85730; 87086; 88304; 93005; 94664; 96360; 96361; 96365; 96367; 96372; 96375; 96376; 99285; G0378; J0696; J2270; J2405; J2550; J3010; J7030; J7120; J7611; Q9967